=== PATIENT | female | born 1990 | race Caucasian/White ===

== ENCOUNTER → 2020-02-23 09:56 | Outpatient (CLI) | payer OTHER, SELFPAY ==
--- NOTE | ~2020-02-23 | XR_ITS ---
EXAMINATION: XR chest 2V 02/23/2020 10:33 INDICATION: Shortness of breath PROCEDURE: 2 view chest COMPARISON: 01/31/2019 FINDINGS: The lungs are clear. The cardiomediastinal silhouette is within normal limits. There are no pleural effusions. There is no pneumothorax suspected. IMPRESSION: 1: NO ACUTE CARDIOPULMONARY DISEASE. Reviewed, dictated and finalized at location A.
== END ==
PROVIDERS: PCP Family Medicine; Visit Provider Family Medicine
DX: R06.02 Shortness of breath (principal)
CPT/HCPCS: 71046

== ENCOUNTER 2020-04-15 08:36 | Outpatient (CLI) | payer OTHER, SELFPAY ==
--- NOTE | 2020-05-06 19:30 | WPDHOMESLEEP ---
Sleep Study - Home Unattended Date of Study: 04/15/20 Ordering Provider: Joel Baum MD Interpreting Physician: Ernestine Vang MD Home Sleep Study Type: Apnea Link Air Height: 1.68 m Weight: 118.388 kg Body Mass Index: 42.1 [place]: 3 Reason for Sleep Study JOSESITO Sleep History Janna Heart is a 30 year-old female referred for a sleep study by her bias cutting machine operator vertical due to severe shortness of breath that developed in February. She describes herself as a night owl since and able to function on less sleep compared to other people. She does not like to fall asleep because it is difficult to shut her mind off at night. Sometimes it takes a while for her to fall asleep. She states that at time she is awake while she is sleeping. There is a family history of sleep disordered wit her mother and brother having sleep apnea. She rarely snores, and occasionally it is loud enough that others complain. she frequently has trouble sleeping with a cold. She rarely wakes up gasping for breath at night. She does not sweat excessively at night. She rarely notices her heart pounding or beating irregularly at night. She rarely falls asleep during the day, never involuntarily and never during physical effort. She does not have loss of muscle tone was strong emotion. She occasionally has daytime difficulties due to excessive sleepiness. She rarely feels paralyzed on waking or falling asleep. She rarely has vivid dreamlike scenes upon awakening or falling asleep. She rarely is afraid to go to sleep. She rarely has nightmares. She occasionally report remembers her dreams. She constantly has racing thoughts. She rarely feels sad or depressed however frequently feels anxious. she rarely has muscular tension. She occasionally notices parts of her body jerking. She does not kick at night. She rarely has crawling or aching feelings in her legs. She does not have leg pain at night. She occasionally has morning jaw pain. Her dental hygienist told her that her teeth show evidence that she grinds her teeth during sleep. She occasionally is bothered by pain the day, never is awakened by pain at night. She frequently wakes up feeling stiff in the morning, rarely has sore or achy muscles but frequently has pain in the neck and spine. She has fatigue, insomnia, concentration difficulties, nightmares, headaches and palpitations. Normal bedtime is between 1:00 a.m. and 2:30 a.m., falling asleep within 15 minutes, waking up during the night when her toddler cries. Sometime she is awake for 45 minutes to an hour. She often will urinate at night. She wakes in the morning between 8 and 8:45 a.m.. Weekend schedule is similar although she wakes up later in the morning, between 9:00 and 11:00 a.m. She does not take naps. She feels worse after a nap. She is drowsy in the morning for 1 hour or longer. She has frequent morning headaches, frequent daytime sleepiness and frequent memory and concentration difficulties Habits: Never smoked. Caffeine is not daily, 32 oz or less when she uses it. Alcohol 1-4 drinks per week. [facility] Past Medical History Medical History (Updated 05/06/20 @ 21:12 by Ernestine Vang MD) Hypertension uncontrolled HTN at time of delivery Feb 2019 Pneumonia Pulmonary hypertension Shortness of Breath Surgical History Surgical History (Updated 05/06/20 @ 20:07 by Ernestine Vang MD) S/P section S/P tonsillectomy and adenoidectomy Family History Family History (Updated 05/06/20 @ 20:09 by Ernestine Vang MD) Mother Obstructive sleep apnea Sibling Obstructive sleep apnea Social History Social History (Updated 05/06/20 @ 20:08 by Ernestine Vang MD) Smoking status: Never smoker Alcohol intake: never Substance use: never Living arrangements: with family Occupation/Education: occupation 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
[2020-05-06 21:14] VITALS: BMI 42.1
== END 2020-04-15 08:37 | disposition home or self-care (01) ==
LOC: ANHCSM 08:42
PROVIDERS: PCP Family Medicine; Visit Provider Internal Medicine Cardiovascular Disease
DX: G47.33 Obstructive sleep apnea (adult) (pediatric) (principal)
CPT/HCPCS: 95806

== ENCOUNTER → 2020-08-03 07:37 | Outpatient (CLI) | payer OTHER, SELFPAY ==
[2020-08-03 22:49] LABS: SARS-CoV-2 RNA PCR Positive
== END ==
PROVIDERS: PCP Nurse Practitioner; Visit Provider Nurse Practitioner
DX: U07.1 COVID-19 (principal)
CPT/HCPCS: C9803; U0003; U0005

== ENCOUNTER → 2020-09-21 00:53 | Outpatient (CLI) | payer OTHER, SELFPAY ==
[2020-09-22 00:07] LABS: SARS-CoV-2 RNA PCR Positive
== END ==
PROVIDERS: PCP Nurse Practitioner; Visit Provider Internal Medicine Critical Care Medicine
DX: U07.1 COVID-19 (principal)
CPT/HCPCS: C9803; U0003; U0005

== ENCOUNTER → 2020-10-19 01:36 | Outpatient (CLI) | payer OTHER, SELFPAY ==
[2020-10-20 14:53] LABS: SARS-CoV-2 RNA PCR Negative
== END ==
PROVIDERS: PCP Nurse Practitioner; Visit Provider Internal Medicine Critical Care Medicine
DX: Z01.812 Encounter for preprocedural laboratory examination (principal); Z20.822 Contact with and (suspected) exposure to COVID-19
CPT/HCPCS: C9803; U0003; U0005

== ENCOUNTER 2020-10-22 08:15 | Outpatient (CLI) | payer OTHER, SELFPAY ==
--- NOTE | 2020-11-04 15:03 | WPDSLEEPSTUD ---
Sleep Study Ordering Provider: Blaine Maldonado MD Interpreting Physician: Ernestine Vang MD Sleep Study Type: Polysomnogram Height: 1.68 m Weight: 115.666 kg Body Mass Index: 41.1 Neck Circumference (inches): 16 Reason for Sleep Study 04/15/2020 Home Sleep Test with mild JOSESITO, AHI is 6.2, desaturation 87%; presents for split night study for more accurate evaluation Sleep History Janna Heart is a 30 year-old female referred for a sleep study by her hotel front desk clerk due to severe shortness of breath that developed in February,. She describes herself as a night owl since and able to function on less sleep compared to other people. She does not like to fall asleep because it is difficult to shut her mind off at night. Sometimes it takes a while for her to fall asleep. She states that at time she is awake while she is sleeping. There is a family history of sleep disordered wit her mother and brother having sleep apnea. She rarely snores, and occasionally it is loud enough that others complain. she frequently has trouble sleeping with a cold. She rarely wakes up gasping for breath at night. She does not sweat excessively at night. She rarely notices her heart pounding or beating irregularly at night. She rarely falls asleep during the day, never involuntarily and never during physical effort. She does not have loss of muscle tone was strong emotion. She occasionally has daytime difficulties due to excessive sleepiness. She rarely feels paralyzed on waking or falling asleep. She rarely has vivid dreamlike scenes upon awakening or falling asleep. She rarely is afraid to go to sleep. She rarely has nightmares. She occasionally report remembers her dreams. She constantly has racing thoughts. She rarely feels sad or depressed however frequently feels anxious. she rarely has muscular tension. She occasionally notices parts of her body jerking. She does not kick at night. She rarely has crawling or aching feelings in her legs. She does not have leg pain at night. She occasionally has morning jaw pain. Her dental hygienist told her that her teeth show evidence that she grinds her teeth during sleep. She occasionally is bothered by pain the day, never is awakened by pain at night. She frequently wakes up feeling stiff in the morning, rarely has sore or achy muscles but frequently has pain in the neck and spine. She has fatigue, insomnia, concentration difficulties, nightmares, headaches and palpitations. Normal bedtime is between 1:00 a.m. and 2:30 a.m., falling asleep within 15 minutes, waking up during the night when her toddler cries. Sometime she is awake for 45 minutes to an hour. She often will urinate at night. She wakes in the morning between 8 and 8:45 a.m.. Weekend schedule is similar although she wakes up later in the morning, between 9:00 and 11:00 a.m. She does not take naps. She feels worse after a nap. She is drowsy in the morning for 1 hour or longer. She has frequent morning headaches, frequent daytime sleepiness and frequent memory and concentration difficulties Habits: Never smoked. Caffeine is not daily, 32 oz or less when she uses it. Alcohol 1-4 drinks per week. 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
[2020-11-04 16:33] VITALS: BMI 41.1
== END 2020-10-22 08:16 | disposition home or self-care (01) ==
LOC: ANHCSM 08:15
PROVIDERS: PCP Nurse Practitioner; Visit Provider Internal Medicine Pulmonary Disease
DX: G47.33 Obstructive sleep apnea (adult) (pediatric) (principal)
CPT/HCPCS: 95810

== ENCOUNTER → 2022-01-02 12:37 | Outpatient (CLI) | payer OTHER, SELFPAY ==
--- NOTE | ~2022-01-02 | XR_ITS ---
XR chest 2V 01/02/2022 13:13 Indication: Acute bronchitis Procedure: 2 view chest Comparison: Comparison to multiple prior studies sequentially, with oldest reviewed study dated 12/2018. Findings: There are left perihilar infiltrates, suspicious for pneumonia. Heart size normal. No edema , pleural effusion or pneumothorax. No acute osseous abnormality. Impression: 1: Left perihilar infiltrates, suspicious for pneumonia. Reviewed, dictated and finalized at location A. Impression: 1: Left perihilar infiltrates, suspicious for pneumonia.
== END ==
PROVIDERS: PCP Nurse Practitioner Family; Visit Provider Nurse Practitioner Family
DX: J20.9 Acute bronchitis, unspecified (principal); R10.9 Unspecified abdominal pain; R91.8 Other nonspecific abnormal finding of lung field
CPT/HCPCS: 71046

== ENCOUNTER → 2022-01-13 13:17 | Outpatient (CLI) | payer OTHER, SELFPAY ==
--- NOTE | ~2022-01-13 | US_ITS ---
EXAMINATION: US abdomen complete DATE: 01/13/2022 13:44 INDICATION: Abdominal pain. TECHNIQUE: Multiple grayscale and Doppler ultrasound images of the abdomen were obtained. COMPARISON: None available FINDINGS: Visualized portions of the pancreas are normal. Enlarged echogenic liver. No surface nodula rity. Normal hepatopetal flow in the main portal vein. The gallbladder is normal with no abnormal wal l thickening, pericholecystic fluid or stones. The normal common bile duct measures 4 mm. There was n o sonographic Crocker sign. The visualized portions of the aorta and inferior vena cava are normal. The right kidney measures 14.9 x 4.6 x 5.1. The left kidney measures 15 x 4.4 x 6.1. The kidneys demo nstrate normal parenchymal echogenicity. There is no hydronephrosis. The spleen is normal in appearan ce and measures 14.1 cm. IMPRESSION: 1. Hepatic steatosis. 2. Hepatosplenomegaly. 3. Otherwise normal abdominal ultrasound findings. Reviewed, dictated and finalized at location K.
== END ==
PROVIDERS: Visit Provider Nurse Practitioner Family
DX: J20.9 Acute bronchitis, unspecified (principal); R10.9 Unspecified abdominal pain; K76.0 Fatty (change of) liver, not elsewhere classified; R16.1 Splenomegaly, not elsewhere classified
CPT/HCPCS: 76700